=== PATIENT | male | born 1960 ===

== ENCOUNTER → 2020-04-17 09:02 | Outpatient (CLI) | payer OTHER, MEDICAID, SELFPAY ==
[2020-04-18 18:29] LABS: COVID19 Sendout Not Detected (Not Detect)
== END ==
PROVIDERS: PCP Family Medicine; Visit Provider Physician Assistant
DX: Z11.59 Encounter for screening for other viral diseases (principal)
CPT/HCPCS: 87635

== ENCOUNTER → 2020-07-04 13:06 | Outpatient (CLI) | payer OTHER, MEDICAID, SELFPAY ==
[2020-07-06 02:06] LABS: COVID19 Sendout Not Detected (Not Detect)
== END ==
PROVIDERS: PCP Family Medicine; Visit Provider Student in an Organized Health Care Education/Training Program
DX: Z11.59 Encounter for screening for other viral diseases (principal)
CPT/HCPCS: 87635

== ENCOUNTER → 2021-01-28 11:00 | Outpatient (CLI) | payer OTHER, MEDICAID, SELFPAY ==
--- NOTE | 2021-01-28 11:01 | DI.US.S_ITS ---
PROCEDURE: US ABDOMEN LIMITED INDICATIONS: Umbilical hernia without obstruction or gangrene TECHNIQUE: Real-time focused scanning was performed of the abdomen, with image documentation. COMPARISON: None. FINDINGS: There is an umbilical hernia seen, which appears to contain fat. The hernia defect measures approximately 2.5 cm. IMPRESSION: Umbilical hernia seen by ultrasound, which appears to contain omental fat. Dictated by: Hayden Cat M.D. on 01/28/2021 at 13:56 Approved by: Hayden Cat M.D. on 01/28/2021 at 13:57
== END ==
PROVIDERS: PCP Family Medicine; Referring Provider Family Medicine; Visit Provider Family Medicine
DX: K42.9 Umbilical hernia without obstruction or gangrene (principal)
CPT/HCPCS: 76705

== ENCOUNTER 2021-12-27 20:56 | Emergency (ER) | payer OTHER, MEDICAID, SELFPAY ==
[2021-12-27 21:02] VITALS: TEMP 36.9
== END 2021-12-27 22:13 | disposition left against medical advice (07) ==
PROVIDERS: Emergency Provider Emergency Medicine; PCP Family Medicine
DX: K08.89 Other specified disorders of teeth and supporting structures (principal)
CPT/HCPCS: 99281

== ENCOUNTER 2022-01-11 12:51 | Emergency (ER) | payer OTHER, MEDICAID, SELFPAY ==
[2022-01-11 13:23] VITALS: BP 149/92; PULSE 95; RESP 18; TEMP 36.7; O2SAT 99; BMI 25.0
--- NOTE | 2022-01-11 13:39 | DI.CT.S_ITS ---
PROCEDURE: CT HEAD/BRAIN W CON INDICATIONS: Headache/vision change TECHNIQUE: 4.5 mm thick angled axial sections acquired from the foramen magnum to the vertex after the administration of intravenous contrast, with coronal and sagittal reformats. For radiation dose reduction, the following was used: automated exposure control, adjustment of mA and/or kV according to patient size. COMPARISON: None. FINDINGS: Image quality: Excellent. CSF Spaces: Basal cisterns are patent. No extra-axial fluid collections. Ventricles are normal in size and shape. Brain: No midline shift. No intracranial bleeds or masses. No abnormal intracranial enhancement. Mayo-white interface appears normal. Skull and face: Calvarium and visualized facial bones appear intact, without suspicious lesions. Sinuses: Visualized sinuses and mastoids are clear. IMPRESSION: No acute intracranial abnormality or abnormal intracranial enhancement. Dictated by: Lito Ardon M.D. on 01/11/2022 at 14:52 Approved by: Lito Ardon M.D. on 01/11/2022 at 14:54
[2022-01-11] MEDS: KETOROLAC 30 MG/ML VIAL 15 MG IV (13:46)
--- NOTE | 2022-01-11 13:46 | ED.GENADULT ---
HPI - General Adult General Chief complaint: Dental/Oral Stated complaint: Jaw infection spreading- vision issues Time Seen by Provider: 01/11/22 13:25 Source: patient Mode of arrival: Ambulatory History of Present Illness HPI narrative: Patient here for multiple complaints. Patient states 2 weeks ago started with left lower jaw pain and swelling that has resolved. He did see his family doctor and was given amoxicillin twice a day for 10 days for infection to the left jaw. He denies any abscess at that time. Again, symptoms have resolved. Since then patient has had additional complaints. This past Monday had less than 1 minute episode of blurry vision in both eyes. He states he was done under any stress at the time. No headache associated with this. Denies any chest pain or palpitations. This morning he has mid inferior occipital scalp pain and tenderness to this area and upper neck. Increase pain with palpation and slight pain with range of motion of the neck. Patient states he has been under tremendous amount of stress. Undergoing a divorce, since May last year. He has 6 children. He states this stress is 5 times more than he would ever imagine having before. Related Data Home Medications Medication Instructions Recorded Confirmed cholesterol medication PO 02/19/21 omega-3 fatty acids 1,000 mg 1,000 mg PO DAILY 02/19/21 02/19/21 capsule (Fish Oil Concentrate) oxymetazoline 0.05 % nasal spray 1 spray intranasal ONCE 02/19/21 02/19/21 (12 Hour Nasal Relief [place]) Allergies Allergy/AdvReac Type Severity Reaction Status Date / Time Iqbshtl-XGH-AkL Reductase Allergy Intermediate Verified 01/11/22 13:46 Inhibitor [[id number] REDUCTASE INHIBITOR] Review of Systems Review of Systems Narrative: GENERAL: Denies chills, fatigue, malaise, fever, sweats. HEENT: Denies sinus pain, ear pain, sore throat RESPIRATORY: Denies dyspnea, cough CARDIOVASCULAR: Denies chest pain, palpitations GASTROINTESTINAL: Denies nausea, vomiting, abdominal pain : Denies dysuria, frequency, hematuria MUSCULOSKELETAL: Positive for muscle or bony pain, positive for neck pain SKIN: Denies rash, skin lesions NEUROLOGIC: Denies weakness, numbness, positive for blurry vision ROS Unobtainable: All systems reviewed & are unremarkable except as noted in HPI and below Patient History Social History Smoking Status: Never smoker Smoking Status: Never smoker alcohol intake frequency: other Substance Use Type: does not use Exam Narrative Exam Narrative: GENERAL: in no distress, not toxic not dyspneic HEAD: Normocephalic. EYES: Pupils equal round No scleral icterus. ENT: Mucous membranes moist. No gum erythema edema or or abscess in the left lower jaw. No dental abscess seen on inspection, no edema of the external mandible on the left or the right. No submandibular tenderness NECK: Trachea midline. Reproducible mid upper posterior cervical spine tenderness but no step-off. Has full range of motion at the neck but does have discomfort at this site. No meningeal signs. CARDIOVASCULAR: Regular rate and rhythm without murmurs RESPIRATORY: Clear to auscultation. Breath sounds equal bilaterally. No wheezes, rales, or rhonchi. GASTROINTESTINAL: Abdomen soft, non-tender EXTREMITIES: No gross deformities. BACK: No flank tenderness. NEURO: AOx4. SKIN: Warm and dry PSYCH: Not anxious, is cooperative Initial Vital Signs Initial Vital Signs: Vital Signs Temperature 98.1 F 01/11/22 13:23 Pulse Rate 95 H 01/11/22 13:23 Respiratory Rate 18 01/11/22 13:23 Blood Pressure 149/92 H 01/11/22 13:23 Pulse Oximetry 99 01/11/22 13:23 Oxygen Delivery Method 01/11/22 13:23 Course Course Course Narrative: No new issues during course of stay Orders Ordered: Discontinued Medications Sodium Chloride (Normal Saline 0.9%) 500 mls @ 1,000 mls/hr IV BOLUS ONE Stop: 01/11/22 14:03 Last Infusion: 01/11/22 14:37 Dose: 0 mls/hr Documented By: Admin: 01/11/22 13:47 Dose: 1,000 mls/hr Documented By: GINA Ketorolac Tromethamine (Ketorolac 30 Mg/Ml Vial) 15 mg IV NOW ONE Stop: 01/11/22 13:35 Last Admin: 01/11/22 13:46 Dose: 15 mg Documented By: GINA Reevaluation(s) Reevaluation #1: Patient neck is pain-free after Toradol. Feeling much better. Reviewed results with patient. They are reassuring blood work and imaging. Symptoms he has been describing likely tension headache/ocular migraine. He has been under a lot of stress. The posterior upper neck pain likely tension headache. This was relieved with Toradol. He may be developing ocular migraine with the symptoms he had from Monday with double vision. Return precautions reviewed with him. He does have a family doctor to follow up with. Patient states he sees eye doctor and office across from the hospital here. He states he will contact their office in the morning. Spoke with him that many stroke/stroke was considered however, given his intense amount of stress in his life recently, likely not stroke Vital Signs Vital signs: Vital Signs - 8 hr 01/11/22 13:23 01/11/22 15:39 Temperature 98.1 F Pulse Rate 95 H Respiratory Rate 18 89 H Blood Pressure 149/92 H 139/91 H Pulse Oximetry 99 98 Medical Decision Making Differential Diagnosis Differential Diagnosis: Tension headache/ocular migraine/facial abscess/brain abscess/TIA/stroke Lab Data Result diagrams: 01/11/22 13:50 01/11/22 13:50 Labs: Lab Results 01/11/22 01/11/22 Range/Units 13:50 13:50 WBC 8.2 (4.5-11.0) X10^3/uL RBC 4.61 (4.5-5.9) X10^6/uL Hgb 14.5 (13.5-17.5) g/dL Hct 41.2 (41-53) % MCV 89.4 (80-100) fL MCH 31.4 (26-34) PG MCHC 35.1 (30-36) % RDW 12.7 (11.6-14.8) % Plt Count 319 (150-400) X10^3/uL Neut % (Auto) 67.3 (50-75) % Lymph % (Auto) 20.1 L (25-40) % [place] % (Auto) 7.8 (3-14) % Eos % (Auto) 4.1 H (2-4) % Baso % (Auto) 0.7 (0-2) % Neut # (Auto) 5500 (9066-2856) /uL Lymph # (Auto) 1700 (8846-3260) /uL [place] # (Auto) 600 (0-900) /uL Eos # (Auto) 300 (0-450) /uL Baso # (Auto) 100 (0-100) /uL Sodium 140 (137-145) mmol/L Potassium 3.8 (3.4-5.1) mmol/L Chloride 103 (98-107) mmol/L Carbon Dioxide 29 (22-32) mmol/L BUN 14 (9-20) mg/dL Creatinine 0.80 (0.66-1.25) mg/dL Estimated GFR > 60 (>60) mL/min BUN/Creatinine Ratio 17.5 (6-22) Glucose 96 (80-110) mg/dL Calcium 9.1 (8.4-10.2) mg/dL Total Bilirubin 0.6 (0.2-1.3) mg/dL AST 31 (17-59) IU/L ALT 27 (<50) IU/L Alkaline Phosphatase 63 (38-126) U/L Total Protein 8.0 (6.3-8.2) g/dL Albumin 4.4 (3.5-5.0) g/dL Globulin 3.6 (1.7-4.1) g/dL Albumin/Globulin Ratio 1.2 (1.0-2.8) Imaging Data CT scan - head: Radiologist's Impression: [address] [address] [address] Scan Report Signed Patient: Rizwan Navarro MR#: [id number] : 1960 Acct:[id number] Age/Sex: 61 / M Date of Service: 01/11/22 Loc: ED Accession Number: [id number] ?? Procedure: CT head/brain w con Ordering Provider: Cristian Gamble MD PROCEDURE:? CT HEAD/BRAIN W CON ? INDICATIONS:? Headache/vision change ? TECHNIQUE:? 4.5 mm thick angled axial sections acquired from the foramen magnum to the vertex after the administration of intravenous contrast, with coronal and sagittal reformats.? For radiation dose reduction, the following was used:? automated exposure control, adjustment of mA and/or kV according to patient size.? ? COMPARISON:? None. ? FINDINGS:? Image quality:? Excellent.? ? CSF Spaces:? Basal cisterns are patent.? No extra-axial fluid collections.? Ventricles are normal in size and shape. ? Brain:? No midline shift.? No intracranial bleeds or masses.? No abnormal intracranial enhancement.? Mayo-white interface appears normal.? ? Skull and face:? Calvarium and visualized facial bones appear intact, without suspicious lesions.? ? Sinuses:? Visualized sinuses and mastoids are clear.? ? IMPRESSION:? No acute intracranial abnormality or abnormal intracranial enhancement. ? ? Dictated by: Lito Ardon M.D. on 01/11/2022 at 14:52 ? ? Approved by: Lito Ardon M.D. on 01/11/2022 at 14:54 ? CT face with IV contrast: Radiologist's Impression: [address] [address] [address] Scan Report Signed Patient: Rizwan Navarro MR#: [id number] : 1960 Acct:[id number] Age/Sex: 61 / M Date of Service: 01/11/22 Loc: ED Accession Number: [id number] ?? Procedure: CT facial bones w con Ordering Provider: Cristian Gamble MD PROCEDURE:? CT FACIAL BONES W CON ? INDICATIONS:? Headache/vision change ? TECHNIQUE:? After the administration of intravenous contrast, 2.5 mm axial sections acquired from the mid-neck to the frontal sinuses, with coronal and sagittal reformats.? For radiation dose reduction, the following was used:? automated exposure control, adjustment of mA and/or kV according to patient size.? ? COMPARISON:? None. ? FINDINGS:? ? There are a diffuse paranasal sinus osseous changes reflective of likely chronic or recurrent sinusitis, namely thickening and sclerosis of the paranasal sinus reid.? There is circumferential mucosal thickening in the maxillary sinuses measuring up to 1 cm.? The mucosal thickening moderately narrows the maxillary sinus outflow tracts bilaterally.? There is mucosal thickening in the sphenoid sinuses with obstruction of the bilateral sphenoid ethmoid recesses as well.? Mucosal thickening in the anterior and posterior ethmoid air cells with obstruction of the left frontoethmoid recess.? Small volume of aerated secretions in the left frontal sinus noted. ? Moderate S shaped nasal septal deviation with spurring creating a mucosal contact point with the left inferior nasal turbinate. ? No obvious carious lesion or periapical lucency.? No suspicious lytic or blastic osseous lesion.? No fluid collection or acute inflammatory changes in the regional soft tissues.? Orbital structures are normal. ? IMPRESSION: ? Diffuse paranasal sinus inflammatory changes indicative of probable chronic or recurrent sinusitis with possible acute superimpose sinusitis. ? Moderate S shaped nasal septal deviation with spurring creating a mucosal contact point. ? ? Dictated by: Lito Ardon M.D. on 01/11/2022 at 14:54 ? ? Approved by: Lito Ardon M.D. on 01/11/2022 at 14:58 ? MDM Narrative Medical decision making narrative: Appropriate for discharge home. Exam laboratory studies are reassuring. Differential diagnosis for patient's complaints today include but not limited to ocular migraine/tension headache. Facial abscess/cranial abscess. Pain was relieved with Toradol for the upper neck pain. Patient has a tremendous amount of stress he states, 5 times more than usual for his ongoing divorce since May. He has 6 children. At this time patient in no distress. Not toxic. Return precautions reviewed with him. TIA/stroke considered however exam is reassuring and imaging are reassuring as well. Discharge Plan Departure Patient Disposition: Home Clinical Impression: Acute tension headache Instructions: Tips for Reducing Stress in Your Life Activity Restrictions/Additional Instructions: See family doctor this week for recheck. May need referral to counseling to help for the stresses in your life. Return if worsening questions or concerns. Today's laboratory studies and imaging are reassuring. Ocular migraines can cause visual disturbances, given the stress you have been under, likely tension headache causing discomfort in the back of your head/neck. May continue ibuprofen for pain. Prescriptions: No Action oxymetazoline [12 Hour Nasal Relief [place]] 0.05 % spray,non-aerosol 1 spray intranasal ONCE omega-3 fatty acids [Fish Oil Concentrate] 1,000 mg capsule 1,000 mg PO DAILY cholesterol medication PO Referrals: Garrison Verma MD [Primary Care Provider] -
[2022-01-11] MEDS: SODIUM CHLORIDE 0.9% 500 ML 1000 ML IV (13:47)
[2022-01-11 14:02] LABS: Add Manual Diff / Slide Review NO; Basophils Absolute Auto 100 /uL (0-100); Basophils Percent Auto 0.7 % (0-2); Eosinophils Absolute Auto 300 /uL (0-450); Eosinophils Percent Auto 4.1 % (2-4); Hematocrit 41.2 % (41-53); Hemoglobin 14.5 g/dL (13.5-17.5); Lymphocytes Absolute Auto 1700 /uL (1100-4500); Lymphocytes Percent Auto 20.1 % (25-40); Mean Corpuscular HGB Conc 35.1 % (30-36); Mean Corpuscular Hemoglobin 31.4 PG (26-34); Mean Corpuscular Volume 89.4 fL (80-100); Monocytes Absolute Auto 600 /uL (0-900); Monocytes Percent Auto 7.8 % (3-14); Neutrophils Absolute Auto 5500 /uL (1500-7000); Neutrophils Percent Auto 67.3 % (50-75); Platelet Count 319 X10^3/uL (150-400); Red Blood Cell Count 4.61 X10^6/uL (4.5-5.9); Red Cell Distribution Width 12.7 % (11.6-14.8); White Blood Cell Count 8.2 X10^3/uL (4.5-11.0)
[2022-01-11 14:16] LABS: Alanine Aminotransferase 27 IU/L (<50); Albumin 4.4 g/dL (3.5-5.0); Albumin Globulin Ratio 1.2 (1.0-2.8); Alkaline Phosphatase 63 U/L (38-126); Aspartate Aminotransferase 31 IU/L (17-59); BUN Creatinine Ratio 17.5 (6-22); Bilirubin Total 0.6 mg/dL (0.2-1.3); Blood Urea Nitrogen 14 mg/dL (9-20); Calcium 9.1 mg/dL (8.4-10.2); Carbon Dioxide 29 mmol/L (22-32); Chloride 103 mmol/L (98-107); Estimated Glomerular Filt Rate > 60 mL/min (>60); Globulin 3.6 g/dL (1.7-4.1); Glucose 96 mg/dL (80-110); HEMOLYSIS < 15 (0-50); Potassium 3.8 mmol/L (3.4-5.1); Sodium 140 mmol/L (137-145)
--- NOTE | 2022-01-11 14:20 | DI.CT.S_ITS ---
PROCEDURE: CT FACIAL BONES W CON INDICATIONS: Headache/vision change TECHNIQUE: After the administration of intravenous contrast, 2.5 mm axial sections acquired from the mid-neck to the frontal sinuses, with coronal and sagittal reformats. For radiation dose reduction, the following was used: automated exposure control, adjustment of mA and/or kV according to patient size. COMPARISON: None. FINDINGS: There are a diffuse paranasal sinus osseous changes reflective of likely chronic or recurrent sinusitis, namely thickening and sclerosis of the paranasal sinus reid. There is circumferential mucosal thickening in the maxillary sinuses measuring up to 1 cm. The mucosal thickening moderately narrows the maxillary sinus outflow tracts bilaterally. There is mucosal thickening in the sphenoid sinuses with obstruction of the bilateral sphenoid ethmoid recesses as well. Mucosal thickening in the anterior and posterior ethmoid air cells with obstruction of the left frontoethmoid recess. Small volume of aerated secretions in the left frontal sinus noted. Moderate S shaped nasal septal deviation with spurring creating a mucosal contact point with the left inferior nasal turbinate. No obvious carious lesion or periapical lucency. No suspicious lytic or blastic osseous lesion. No fluid collection or acute inflammatory changes in the regional soft tissues. Orbital structures are normal. IMPRESSION: Diffuse paranasal sinus inflammatory changes indicative of probable chronic or recurrent sinusitis with possible acute superimpose sinusitis. Moderate S shaped nasal septal deviation with spurring creating a mucosal contact point. Dictated by: Lito Ardon M.D. on 01/11/2022 at 14:54 Approved by: Lito Ardon M.D. on 01/11/2022 at 14:58
[2022-01-11 15:39] VITALS: BP 139/91; RESP 89; O2SAT 98
== END 2022-01-11 15:39 | disposition home or self-care (01) ==
PROVIDERS: Emergency Provider Emergency Medicine; PCP Family Medicine
DX: G44.209 Tension-type headache, unspecified, not intractable (principal); M54.2 Cervicalgia
CPT/HCPCS: 36415; 70460; 70487; 80053; 85025; 96374; 99284; J1885

== ENCOUNTER 2022-07-07 12:57 | Inpatient (IN) | payer OTHER, MEDICAID, SELFPAY ==
[2022-07-07] VITALS (43 sets, daily range): BP systolic 108–158; BP diastolic 64–96; PULSE 71–88; RESP 12–30; TEMP 36.5–36.6; O2SAT 93–100; BMI 26.6; BMI 25.0
--- NOTE | 2022-07-07 | DI.CT.S_ITS ---
PROCEDURE: CT HEAD/BRAIN WO CON INDICATIONS: trauma TECHNIQUE: Noncontrast 4.5 mm thick angled axial sections acquired from the foramen magnum to the vertex, with coronal and sagittal reformats. For radiation dose reduction, the following was used: automated exposure control, adjustment of mA and/or kV according to patient size. COMPARISON: None. FINDINGS: Image quality: Excellent. CSF spaces: Basal cisterns are patent. No extra-axial fluid collections. Ventricles are normal in size and shape. Brain: No midline shift. No intracranial masses or hemorrhage. Mayo-white matter interface is normal. Skull and face: Calvarium and visualized facial bones are intact, without suspicious lesions. Sinuses: Visualized sinuses and mastoids are clear. IMPRESSION: No acute finding. Dictated by: Lito Ardon M.D. on 07/07/2022 at 13:32 Approved by: Lito Ardon M.D. on 07/07/2022 at 13:32
--- NOTE | 2022-07-07 | DI.CT.S_ITS ---
PROCEDURE: CT CHEST ABD PEL W CON INDICATIONS: trauma TECHNIQUE: After the administration of intravenous contrast, 5 mm thick sections acquired from the lung apices to the symphysis. 2.5 mm thick coronal and sagittal reformats were acquired. Additional 7 mm thick coronal maximum intensity projection (MIP) reformats acquired through the lungs. Optional 10-minute delayed imaging may be performed from the kidneys to the bladder. For radiation dose reduction, the following was used: automated exposure control, adjustment of mA and/or kV according to patient size. COMPARISON: None. FINDINGS: Image quality: Excellent. CHEST: Lungs: There is a small to moderate size pneumothorax along anterior aspect of right lung. Hazy opacities are noted along posterior and lateral aspect of right lung consistent with pulmonary contusion. Scattered atelectasis in posterior and lateral periphery of left lung is seen. No pleural effusion. No left-sided pneumothorax. Central and peripheral airways appear patent and normal in caliber. Mediastinum: No mediastinal hematomas. Heart size is normal. No pericardial effusion. Thoracic aorta and pulmonary arteries demonstrate normal size and enhancement. No mediastinal or hilar adenopathy. Esophagus is normal in caliber. No hiatal hernia. Chest wall: Minimally displaced fractures involving right posterior lateral 3rd through 8th ribs are seen. Adjacent subcutaneous emphysema along posterior lateral right chest wall is seen. No axillary or supraclavicular adenopathy. Thyroid gland is within normal limits.. ABDOMEN: Solid organs: Liver is normal in size and enhancement, without lacerations. Gallbladder is within normal limits. Biliary system is non-dilated. Pancreas enhances normally, without transection. Spleen is normal in size and enhancement, without lacerations. No adrenal hematomas. Both kidneys enhance normally, without hydronephrosis or lacerations. Peritoneum and bowel: No free fluid or air. Unenhanced bowel loops demonstrate normal wall thickness and caliber. Nodes and vessels: No retroperitoneal or mesenteric adenopathy. Aorta and inferior vena cava are normal in size and enhancement. Miscellaneous: Small umbilical hernia is seen containing fat only. PELVIS: Genitourinary: Bladder wall thickness is normal. Miscellaneous: No inguinal hernias or adenopathy. Bones: Pelvic ring and hip joints appear intact. No vertebral compression fractures. Degenerative disc disease throughout lower lumbar spine is seen. IMPRESSION: 1. Acute slightly displaced fractures involving right posterior lateral 3rd through 8th ribs with adjacent right posterior lateral chest wall subcutaneous emphysema. 2. Contusion involving posterior and lateral aspect of right lung with small to moderate size pneumothorax along anterior aspect of right hemithorax. No left-sided pleural effusion or pneumothorax. 3. No acute solid organ injury is seen in abdomen or pelvis. No mediastinal hematoma. No free fluid or free air. 4. No other fracture or dislocation is seen. Degenerative disc disease in lower lumbar spine. Dictated by: Angel Robles M.D. on 07/07/2022 at 13:49 Approved by: Angel Robles M.D. on 07/07/2022 at 14:03
--- NOTE | 2022-07-07 | DI.CT.S_ITS ---
PROCEDURE: CT CERVICAL SPINE WO CON INDICATIONS: trauma TECHNIQUE: Noncontrast 3 mm thick sections acquired from the skull base to the T4 level. Sagittal and coronal reformats were then constructed. For radiation dose reduction, the following was used: automated exposure control, adjustment of mA and/or kV according to patient size. COMPARISON: None. FINDINGS: Image quality: Excellent. Bones: No fractures or dislocations. Visualized superior ribs are intact. Soft tissues: Prevertebral soft tissues are normal in thickness. No paravertebral hematomas. No apical pneumothoraces. IMPRESSION: No CT evidence of acute tramautic injury. Dictated by: Lito Ardon M.D. on 07/07/2022 at 13:34 Approved by: Lito Ardon M.D. on 07/07/2022 at 13:35
--- NOTE | 2022-07-07 | DI.RAD.S_ITS ---
PROCEDURE: XR CHEST 1V INDICATIONS: tube placement TECHNIQUE: One view of the chest was acquired. COMPARISON: [facility], , XR CHEST 1V, 07/07/2022, 12:53. FINDINGS: Surgical changes and devices: A right-sided chest tube is placed in right hemithorax with site poor appears to be external to right hemithorax. Lungs and pleura: Radiolucency is noted along medial aspect of right hemithorax consistent with CT finding of small to moderate size anterior pneumothorax in this area. Left lung is clear. Mediastinum: Mediastinal contours appear normal. Heart size is enlarged. Bones and chest wall: Patient's known slightly displaced right posterior lateral 3rd through 8th rib fractures are again seen. No suspicious bony lesions. Subcutaneous emphysema along right lateral chest wall is seen likely related to chest tube placement. IMPRESSION: 1. Right-sided chest tube is seen with side port appears to be external to right hemithorax and within right chest wall soft tissue, suggest clinical correlation and repositioning. 2. Radiolucency along medial portion of right hemithorax consistent with CT finding of small pneumothorax in this area. No left-sided pneumothorax. 3. Slightly displaced right posterior lateral right rib fractures. Dictated by: Angel Robles M.D. on 07/07/2022 at 15:12 Approved by: Angel Robles M.D. on 07/07/2022 at 15:15
--- NOTE | 2022-07-07 13:05 | DI.RAD.S_ITS ---
PROCEDURE: XR CHEST 1V INDICATIONS: trauma TECHNIQUE: One view of the chest was acquired. COMPARISON: None. FINDINGS: Surgical changes and devices: None. Lungs and pleura: Lungs are clear. No pleural effusions or pneumothorax. Mediastinum: Mediastinal contours appear normal. Heart size is enlarged. Bones and chest wall: No suspicious bony lesions. Overlying soft tissues appear unremarkable. IMPRESSION: Cardiomegaly. No acute cardiopulmonary pathology. Dictated by: Angel Robles M.D. on 07/07/2022 at 13:17 Approved by: nAgel Robles M.D. on 07/07/2022 at 13:20
[2022-07-07] MEDS: HYDROMORPHONE 0.5 MG INJ (13:06)
--- NOTE | 2022-07-07 13:27 | PC.NURSE ---
pt removed from vaccum spine board in [place] at 9045
[2022-07-07 13:30] LABS: Add Manual Diff / Slide Review NO; Basophils Absolute Auto 100 /uL (0-100); Basophils Percent Auto 0.6 % (0-2); Eosinophils Absolute Auto 400 /uL (0-450); Hematocrit 40.6 % (41-53); Hemoglobin 13.8 g/dL (13.5-17.5); Lymphocytes Absolute Auto 1500 /uL (1100-4500); Lymphocytes Percent Auto 17.9 % (25-40); Mean Corpuscular Hemoglobin 30.7 PG (26-34); Mean Corpuscular Volume 90.3 fL (80-100); Monocytes Absolute Auto 800 /uL (0-900); Monocytes Percent Auto 8.8 % (3-14); Neutrophils Absolute Auto 5800 /uL (1500-7000); Neutrophils Percent Auto 67.7 % (50-75); Platelet Count 308 X10^3/uL (150-400); Red Blood Cell Count 4.49 X10^6/uL (4.5-5.9); Red Cell Distribution Width 13.6 % (11.6-14.8); White Blood Cell Count 8.6 X10^3/uL (4.5-11.0)
[2022-07-07 13:34] LABS: Prothrombin Time 11.6 SECONDS (10.1-12.7)
[2022-07-07 13:36] LABS: PTT Partial Thromboplastin Tim 31 SECONDS (26-36)
[2022-07-07 13:42] LABS: Alanine Aminotransferase 46 IU/L (<50); Albumin 4.2 g/dL (3.5-5.0); Albumin Globulin Ratio 1.1 (1.0-2.8); Alkaline Phosphatase 69 U/L (38-126); Aspartate Aminotransferase 58 IU/L (17-59); BUN Creatinine Ratio 19.3 (6-22); Bilirubin Total 0.7 mg/dL (0.2-1.3); Blood Urea Nitrogen 16 mg/dL (9-20); Carbon Dioxide 29 mmol/L (22-32); Chloride 100 mmol/L (98-107); Creatine Kinase 213 U/L (55-170); Estimated Glomerular Filt Rate > 60 mL/min (>60); Ethanol (ETOH) < 10 mg/dL; Globulin 3.7 g/dL (1.7-4.1); Glucose 132 mg/dL (80-110); HEMOLYSIS < 15 (0-50); Lactate (Lactic Acid) 1.3 mmol/L (0.7-2.1); Lipase 156 U/L (23-300); Potassium 4.2 mmol/L (3.4-5.1); Sodium 138 mmol/L (137-145); Total Protein 7.9 g/dL (6.3-8.2)
[2022-07-07 13:53] LABS: Troponin I < 0.012 ng/mL (0.01-0.034)
[2022-07-07 13:57] LABS: CKMB % Relative Index 1.1 % (1.5-5.0); Creatine Kinase MB 2.42 ng/mL (<2.37)
--- NOTE | 2022-07-07 14:22 | ED_ITS ---
HPI - Trauma General Chief Complaint: Trauma Stated Complaint: fell off roof Time Seen by Provider: 07/07/22 13:05 Source: patient Mode of arrival: EMS History of Present Illness HPI narrative: Patient is a 61-year-old male who presents as a trauma fall off roof. He states his is sun roof was or leaking he had some tarp she went up there to rearrange that tarp he went to throw a ladder when he slipped and fell on the roof landing on his right side. He did not hit his head or lose consciousness. He is not on any anti-platelet or anticoagulation medications. Complaining of severe pain and right side the pain. Also having some back pain as well Related Data Home Medications Medication Instructions Recorded Confirmed omega-3 fatty acids 1,000 mg 1,000 mg PO DAILY 02/19/21 07/07/22 capsule (Fish Oil Concentrate) oxymetazoline 0.05 % nasal spray 1 spray intranasal ONCE 02/19/21 07/07/22 (12 Hour Nasal Relief [place]) acyclovir 400 mg tablet 400 mg PO DAILY 07/07/22 07/07/22 dextroamphetamine-amphetamine 5 mg 5 mg PO DAILY 07/07/22 07/07/22 tablet dextroamphetamine-amphetamine ER 20 mg PO DAILY 07/07/22 07/07/22 20 mg 24hr capsule,extend release Allergies Allergy/AdvReac Type Severity Reaction Status Date / Time Focloyw-QNS-ZiB Reductase Allergy Intermediate Verified 01/11/22 13:46 Inhibitor [[id number] REDUCTASE INHIBITOR] Review of Systems Review of Systems Narrative: GENERAL: Denies chills, fatigue, malaise, fever, sweats, travel HEENT: Denies sinus pain, ear pain, sore throat, difficulty swallowing, neck pain RESPIRATORY: Denies dyspnea, cough, wheezing, hemoptysis, sputum. CARDIOVASCULAR: Denies chest pain, palpitations, orthopnea, edema GASTROINTESTINAL: Denies nausea, vomiting, abdominal pain, diarrhea, constipation, melena. : Denies dysuria, frequency, incontinence, hematuria, urinary retention, flank pain. MUSCULOSKELETAL: See HPI SKIN: No rash, no erythema, no pruritus NEUROLOGIC: Denies weakness, dizziness, headache, numbness, change in speech, confusion PSYCHIATRIC: No concerning psychosocial issues. 12 point review of systems is negative except for those stated above and HPI Patient History Social History household members: none Smoking Status: Never smoker alcohol intake: current Smoking Status: Never smoker alcohol intake frequency: other Substance Use Type: does not use Exam Initial Vital Signs Initial Vital Signs: Vital Signs Pulse Rate 75 07/07/22 12:50 Respiratory Rate 20 07/07/22 12:50 Blood Pressure 150/96 H 07/07/22 12:50 Pulse Oximetry 96 07/07/22 12:50 Oxygen Delivery Method 07/07/22 12:50 GENERAL: Alert 61-year-old male appears uncomfortable and in pain HEENT: Head normocephalic,, EOMI, pupils reactive, face symmetric, moist mucous membranes, no hemotympanum, no septal hematoma NECK: Supple, full range of motion, no step-offs, nontender on vertebrae CARDIOVASCULAR: Regular rate and rhythm without murmurs, rubs or gallops. RESPIRATORY: Decreased sounds bilaterally no respiratory distress no flail chest or rib contusion ABDOMEN: Soft, nontender. Normoactive bowel sounds all 4 quadrants. No guarding or rebound. BACK: Nontender vertebrae, no step-offs, no contusions PELVIS: stable. EXTREMITIES: Normal range of motion, no clubbing or edema. Right upper extremity: Within normal limits Left upper extremity: Within normal limits Right lower extremity: Within normal limits Left lower extremity:Within normal limits NEUROLOGICAL: Cranial nerves II through XII grossly intact. Normal gait and speech. SKIN: Warm, dry, no petechiae, no rashes or lesions, no contusions or ecchymosis Procedures Chest Tube Chest Tube 1: Chest Tube Location: right and mid axillary line Size of Tube (cm): 20 Chest Tube Prep: Yes betadine prep and sterile drapes applied Local Anesthetic: lidocaine 1% and with epi Amount of anesthesia used (mL): 5 Incision Made With: #11 blade Post Procedure: sutured to skin and sterile dressing applied Tube Drainage: none Post Procedure CXR?: Yes Patient Tolerated Procedure: Yes Complications: placement outside of thoracic cavity and tube needs to be repositioned Progress: Initially condensation was in tube initial booth of air Chest Tube 2: Chest Tube Location: right and mid axillary line Size of Tube (cm): 20 Chest Tube Prep: Yes betadine prep and sterile drapes applied Local Anesthetic: lidocaine 1% and with epi Amount of anesthesia used (mL): 10 Post Procedure: sutured to skin and sterile dressing applied Tube Drainage: blood Amount of initial drainage (mL): 2 Post Procedure CXR?: Yes Patient Tolerated Procedure: Yes Progress: Chest tube required repositioning. New chest tube was placed through the same incision and same hold previously made. Condensation in 2 Procedural Sedation Consent signed: Yes Time out performed: Yes Indication: other (Chest tube) IV Propofol dose (mg): 80 Additional Comments: Procedure: Chest 2 Indication(s): chest tube Past History: Prior complication to general anesthesia: [] Prior complication to procedural sedation: [] Last food/drink ingestion: [] Allergies: [] ASA Classification: E E. Emergent conditions P1:Normal healthy patient P2: Mild systemic disease P3: Severe systemic disease P4: Severe systemic disease that is a constant threat to life P5: Moribund patient who is not expected to survive w/o operation Physical Exam: Airway: [] Mallampati Classification: 1 1. Soft Palate, anterior/posterior tonsillar pillars and uvula visible 2. Tonsillar pillars and uvula hidden by base of tongue 3. Only soft palate visible 4. Soft palate not visible Preparation: Plan was explained to the patient, including risks and benefits. Patient is competent to make decisions regarding this elective procedure. Consent signed. night monitor in place during procedure Oximetry in place during procedure. Capnometry in place during procedure. IV access present and patent. Suction available at bedside if needed. Sedation medication used: Propofol 50 mg Complications: None Reversal: None Course Orders Ordered: ED Orders 07/07/22 13:05 Chest [XR chest 1V] Stat 07/07/22 13:06 CBC Auto Diff [Complete Blood Count AUTO DIFF] Stat CMP [Comprehensive Metabolic Panel] Stat ETOH [Ethanol (ETOH)] Stat Lactate (Lactic Acid) Stat Lipase Stat PT [Prothrombin Time INR] Stat PTT [Partial Thromboplastin Time] Stat Troponin & CK Cardiac Panel Stat Urine Drug Screen, Rapid Stat 07/07/22 14:01 EKG-12 Lead Stat 07/07/22 15:20 XR chest 1V Stat 07/07/22 16:30 COVID19 -Nasal RAPID/Pre-Proc Stat Acetaminophen (Acetaminophen 325 Mg Tablet) 650 mg PO Q6H PRN PRN Reason: Fever/Mild Pain (1-3) Hydrocodone Bitart/Acetaminophen (Hydrocodone/Acet 5/325 Tablet) 1 tab PO Q4H PRN PRN Reason: Pain, Moderate (4-6) Hydromorphone HCl (Hydromorphone 0.5 Mg Inj) 0.5 mg IV Q4H PRN PRN Reason: Pain, Moderate (4-6) Ibuprofen (Ibuprofen 600 Mg Tablet) 600 mg PO Q6H PRN PRN Reason: Fever/Mild Pain (1-3) Naloxone HCl (Naloxone 0.4 Mg/Ml Vial) 0.2 mg IV Q2MIN PRN PRN Reason: Opiate Reversal Ondansetron HCl (Ondansetron 4 Mg/2 Ml Inj) 4 mg IV Q8HR PRN PRN Reason: Nausea And Vomiting Discontinued Medications Hydromorphone HCl (Hydromorphone 0.5 Mg Inj) 0.5 mg IV NOW ONE Stop: 07/07/22 14:23 Last Admin: 07/07/22 14:30 Dose: 0.5 mg Documented By: CTS Hydromorphone HCl (Hydromorphone 1 Mg Inj) 1 mg IV Q3H CRISTO Last Admin: 07/07/22 15:08 Dose: 1 mg Documented By: RB Hydromorphone HCl (Hydromorphone 1 Mg Inj) 1 mg IV NOW ONE Stop: 07/07/22 16:22 Last Admin: 07/07/22 16:25 Dose: 1 mg Documented By: CTS Sodium Chloride (Normal Saline 0.9%) 1,000 mls @ 1,000 mls/hr IV BOLUS ONE Stop: 07/07/22 15:21 Last Infusion: 07/07/22 16:03 Dose: 0 mls/hr Documented By: Admin: 07/07/22 14:41 Dose: 1,000 mls/hr Documented By: CTS Propofol (Propofol 200 Mg/20 Ml Vial) 80 mg 1 mg/kg (80 mg) IV NOW ONE Stop: 07/07/22 14:23 Last Admin: 07/07/22 14:45 Dose: 80 mg Documented By: CTS Propofol (Propofol 200 Mg/20 Ml Vial) 50 mg IV NOW ONE Stop: 07/07/22 16:02 Last Admin: 07/07/22 15:40 Dose: 50 mg Documented By: CTS Vital Signs Vital signs: Vital Signs - 8 hr 07/07/22 13:22 07/07/22 12:50 07/07/22 13:08 Temperature 97.8 F Pulse Rate 76 75 76 Respiratory Rate 16 20 21 Blood Pressure 155/90 H 150/96 H Pulse Oximetry 95 96 95 Oxygen Delivery Method Room Air Room Air Oxygen Flow Rate 07/07/22 13:21 07/07/22 13:21 07/07/22 13:25 Temperature Pulse Rate 79 79 Respiratory Rate 21 15 Blood Pressure 141/84 H Pulse Oximetry 97 95 Oxygen Delivery Method Oxygen Flow Rate 07/07/22 13:25 07/07/22 13:30 07/07/22 13:31 Temperature Pulse Rate 76 73 Respiratory Rate 22 23 Blood Pressure 144/88 H Pulse Oximetry 98 97 Oxygen Delivery Method Oxygen Flow Rate 07/07/22 13:31 07/07/22 13:35 07/07/22 13:35 Temperature Pulse Rate 72 Respiratory Rate 20 Blood Pressure 138/86 130/81 Pulse Oximetry 95 Oxygen Delivery Method Oxygen Flow Rate 07/07/22 13:45 07/07/22 13:45 07/07/22 14:00 Temperature Pulse Rate 73 Respiratory Rate 19 Blood Pressure 136/85 136/91 H Pulse Oximetry 97 Oxygen Delivery Method Oxygen Flow Rate 07/07/22 14:00 07/07/22 14:15 07/07/22 14:15 Temperature Pulse Rate 75 76 Respiratory Rate 18 17 Blood Pressure 132/82 Pulse Oximetry 98 95 Oxygen Delivery Method Oxygen Flow Rate 07/07/22 14:20 07/07/22 14:25 07/07/22 14:30 Temperature Pulse Rate 81 80 Respiratory Rate 22 19 Blood Pressure 127/81 Pulse Oximetry 97 98 Oxygen Delivery Method Oxygen Flow Rate 07/07/22 14:30 07/07/22 14:35 07/07/22 14:35 Temperature Pulse Rate 81 73 Respiratory Rate 25 H 16 Blood Pressure 120/74 Pulse Oximetry 98 97 Oxygen Delivery Method Oxygen Flow Rate 07/07/22 14:40 07/07/22 14:40 07/07/22 14:44 Temperature Pulse Rate 75 74 Respiratory Rate 24 18 Blood Pressure 130/82 Pulse Oximetry 100 100 Oxygen Delivery Method Oxygen Flow Rate 07/07/22 14:44 07/07/22 14:45 07/07/22 14:50 Temperature Pulse Rate 76 Respiratory Rate 20 Blood Pressure 131/82 136/70 141/72 H Pulse Oximetry 100 Oxygen Delivery Method Oxygen Flow Rate 07/07/22 14:50 07/07/22 14:55 07/07/22 14:55 Temperature Pulse Rate 79 78 Respiratory Rate 30 H 22 Blood Pressure 133/78 Pulse Oximetry 94 98 Oxygen Delivery Method Oxygen Flow Rate 07/07/22 14:59 07/07/22 15:00 07/07/22 15:00 Temperature Pulse Rate 74 Respiratory Rate 18 21 Blood Pressure 132/77 Pulse Oximetry 100 Oxygen Delivery Method Oxygen Flow Rate 07/07/22 15:05 07/07/22 15:05 07/07/22 15:10 Temperature Pulse Rate 74 Respiratory Rate 20 Blood Pressure 135/81 158/85 H Pulse Oximetry 100 Oxygen Delivery Method Oxygen Flow Rate 07/07/22 15:10 07/07/22 15:15 07/07/22 15:15 Temperature Pulse Rate 80 77 Respiratory Rate 23 12 Blood Pressure 121/73 Pulse Oximetry 100 98 Oxygen Delivery Method Oxygen Flow Rate 07/07/22 15:20 07/07/22 15:20 07/07/22 15:25 Temperature Pulse Rate 82 Respiratory Rate 20 Blood Pressure 124/78 114/77 Pulse Oximetry 99 Oxygen Delivery Method Oxygen Flow Rate 07/07/22 15:25 07/07/22 15:30 07/07/22 15:30 Temperature Pulse Rate 84 83 Respiratory Rate 13 18 Blood Pressure 124/80 Pulse Oximetry 98 97 Oxygen Delivery Method Oxygen Flow Rate 07/07/22 15:35 07/07/22 15:35 07/07/22 15:40 Temperature Pulse Rate 81 Respiratory Rate 18 Blood Pressure 124/84 122/77 Pulse Oximetry 97 Oxygen Delivery Method Oxygen Flow Rate 07/07/22 15:40 07/07/22 15:45 07/07/22 15:45 Temperature Pulse Rate 77 87 Respiratory Rate 12 15 Blood Pressure 119/79 Pulse Oximetry 99 97 Oxygen Delivery Method Nasal Cannula Oxygen Flow Rate 4 07/07/22 15:50 07/07/22 15:50 07/07/22 15:55 Temperature Pulse Rate 79 Respiratory Rate 15 Blood Pressure 126/66 123/74 Pulse Oximetry 93 Oxygen Delivery Method Nasal Cannula Oxygen Flow Rate 4 07/07/22 15:55 07/07/22 16:00 07/07/22 16:00 Temperature Pulse Rate 75 71 Respiratory Rate 14 15 Blood Pressure 122/77 Pulse Oximetry 100 100 Oxygen Delivery Method Nasal Cannula Nasal Cannula Oxygen Flow Rate 4 2 07/07/22 16:05 07/07/22 16:05 07/07/22 16:10 Temperature Pulse Rate 85 Respiratory Rate 21 Blood Pressure 128/82 126/75 Pulse Oximetry 99 Oxygen Delivery Method Nasal Cannula Oxygen Flow Rate 2 07/07/22 16:10 07/07/22 16:15 07/07/22 16:15 Temperature Pulse Rate 84 81 Respiratory Rate 20 19 Blood Pressure 125/78 Pulse Oximetry 98 99 Oxygen Delivery Method Nasal Cannula Room Air Oxygen Flow Rate 2 07/07/22 16:20 07/07/22 16:20 07/07/22 12:55 Temperature Pulse Rate 74 76 Respiratory Rate 16 20 Blood Pressure 120/69 150/88 H Pulse Oximetry 98 96 Oxygen Delivery Method Oxygen Flow Rate 07/07/22 16:35 Temperature Pulse Rate 79 Respiratory Rate 12 Blood Pressure 108/64 Pulse Oximetry 96 Oxygen Delivery Method Room Air Oxygen Flow Rate MDM - Trauma Lab Data Result diagrams: 07/07/22 13:06 07/07/22 13:06 Labs: Lab Results 07/07/22 07/07/22 07/07/22 Range/Units 13:06 13:06 13:06 WBC 8.6 (4.5-11.0) X10^3/uL RBC 4.49 L (4.5-5.9) X10^6/uL Hgb 13.8 (13.5-17.5) g/dL Hct 40.6 L (41-53) % MCV 90.3 (80-100) fL MCH 30.7 (26-34) PG MCHC 34.0 (30-36) % RDW 13.6 (11.6-14.8) % Plt Count 308 (150-400) X10^3/uL Neut % (Auto) 67.7 (50-75) % Lymph % (Auto) 17.9 L (25-40) % Barton % (Auto) 8.8 (3-14) % Eos % (Auto) 5.0 H (2-4) % Baso % (Auto) 0.6 (0-2) % Neut # (Auto) 5800 (8019-0302) /uL Lymph # (Auto) 1500 (7817-1158) /uL Barton # (Auto) 800 (0-900) /uL Eos # (Auto) 400 (0-450) /uL Baso # (Auto) 100 (0-100) /uL PT 11.6 (10.1-12.7) SECONDS INR 1.0 (0.9-1.3) APTT 31 (26-36) SECONDS Sodium 138 (137-145) mmol/L Potassium 4.2 (3.4-5.1) mmol/L Chloride 100 (98-107) mmol/L Carbon Dioxide 29 (22-32) mmol/L BUN 16 (9-20) mg/dL Creatinine 0.83 (0.66-1.25) mg/dL Estimated GFR > 60 (>60) mL/min BUN/Creatinine Ratio 19.3 (6-22) Glucose 132 H (80-110) mg/dL Lactate (0.7-2.1) mmol/L Calcium 9.0 (8.4-10.2) mg/dL Total Bilirubin 0.7 (0.2-1.3) mg/dL AST 58 (17-59) IU/L ALT 46 (<50) IU/L Alkaline Phosphatase 69 (38-126) U/L Total Creatine Kinase 213 H (55-170) U/L CK-MB (CK-2) 2.42 H (<2.37) ng/mL CK-MB (CK-2) Rel Index 1.1 L (1.5-5.0) % Troponin I < 0.012 (0.01-0.034) ng/mL Total Protein 7.9 (6.3-8.2) g/dL Albumin 4.2 (3.5-5.0) g/dL Globulin 3.7 (1.7-4.1) g/dL Albumin/Globulin Ratio 1.1 (1.0-2.8) Lipase 156 (23-300) U/L Ethyl Alcohol < 10 ( - 10) mg/dL SARS-CoV-2 (PCR) (Negative) 07/07/22 07/07/22 Range/Units 13:06 16:30 WBC (4.5-11.0) X10^3/uL RBC (4.5-5.9) X10^6/uL Hgb (13.5-17.5) g/dL Hct (41-53) % MCV (80-100) fL MCH (26-34) PG MCHC (30-36) % RDW (11.6-14.8) % Plt Count (150-400) X10^3/uL Neut % (Auto) (50-75) % Lymph % (Auto) (25-40) % Barton % (Auto) (3-14) % Eos % (Auto) (2-4) % Baso % (Auto) (0-2) % Neut # (Auto) (1828-9059) /uL Lymph # (Auto) (9390-4010) /uL Barton # (Auto) (0-900) /uL Eos # (Auto) (0-450) /uL Baso # (Auto) (0-100) /uL PT (10.1-12.7) SECONDS INR (0.9-1.3) APTT (26-36) SECONDS Sodium (137-145) mmol/L Potassium (3.4-5.1) mmol/L Chloride (98-107) mmol/L Carbon Dioxide (22-32) mmol/L BUN (9-20) mg/dL Creatinine (0.66-1.25) mg/dL Estimated GFR (>60) mL/min BUN/Creatinine Ratio (6-22) Glucose (80-110) mg/dL Lactate 1.3 (0.7-2.1) mmol/L Calcium (8.4-10.2) mg/dL Total Bilirubin (0.2-1.3) mg/dL AST (17-59) IU/L ALT (<50) IU/L Alkaline Phosphatase (38-126) U/L Total Creatine Kinase (55-170) U/L CK-MB (CK-2) (<2.37) ng/mL CK-MB (CK-2) Rel Index (1.5-5.0) % Troponin I (0.01-0.034) ng/mL Total Protein (6.3-8.2) g/dL Albumin (3.5-5.0) g/dL Globulin (1.7-4.1) g/dL Albumin/Globulin Ratio (1.0-2.8) Lipase (23-300) U/L Ethyl Alcohol ( - 10) mg/dL SARS-CoV-2 (PCR) Negative (Negative) Imaging Data Chest x-ray: Radiologist's Impression: Rizwan dudley MR#: [id number] : 1960 Acct:[id number] Age/Sex: 61 / M Date of Service: 07/07/22 Loc: ED Accession Number: [id number] ?? Procedure: XR chest 1V Ordering Provider: Maricel Cedeño D.O. PROCEDURE:? XR CHEST 1V ? INDICATIONS:? tube placement ? TECHNIQUE:? One view of the chest was acquired.? ? COMPARISON:? [facility], , XR CHEST 1V, 07/07/2022, 12:53. ? FINDINGS:? ? Surgical changes and devices:? A right-sided chest tube is placed in right hemithorax with site poor appears to be external to right hemithorax. ? Lungs and pleura:? Radiolucency is noted along medial aspect of right hemithorax consistent with CT finding of small to moderate size anterior pneumothorax in this area.? Left lung is clear. ? Mediastinum:? Mediastinal contours appear normal.? Heart size is enlarged.? ? Bones and chest wall:? Patient's known slightly displaced right posterior lateral 3rd through 8th rib fractures are again seen.? No suspicious bony lesions.? Subcutaneous emphysema along right lateral chest wall is seen likely related to chest tube placement. ? IMPRESSION:? 1. Right-sided chest tube is seen with side port appears to be external to right hemithorax and within right chest wall soft tissue, suggest clinical correlation and repositioning. 2. Radiolucency along medial portion of right hemithorax consistent with CT finding of small pneumothorax in this area.? No left-sided pneumothorax. 3. Slightly displaced right posterior lateral right rib fractures. ? ? Dictated by: Angel Robles M.D. on 07/07/2022 at 15:12 ? ? Approved by: Angel Robles M.D. on 07/07/2022 at 15:15 ? CX 2: Radiologist's Impression: Addendum Patient: Rizwan Navarro MR#: [id number] : 1960 Acct:[id number] Age/Sex: 61 / M Date of Service: 07/07/22 Loc: ED Accession Number: [id number] ?? Procedure: XR chest 1V Ordering Provider: Maricel Cedeño D.O. ADDENDUMThis report includes an Addendum and supersedes previous reports for this exam. ? ? ? PROCEDURE:? XR CHEST 1V ? INDICATIONS:? trauma ? TECHNIQUE:? One view of the chest was acquired.? ? COMPARISON:? None. ? FINDINGS:? ? Surgical changes and devices:? None.? ? Lungs and pleura:? Lungs are clear.? No pleural effusions or pneumothorax.? ? Mediastinum:? Mediastinal contours appear normal.? Heart size is enlarged.? ? Bones and chest wall:? No suspicious bony lesions.? Overlying soft tissues appear unremarkable.? ? IMPRESSION:? Cardiomegaly.? No acute cardiopulmonary pathology. ? ? Dictated by: Angel Robles M.D. on 07/07/2022 at 13:17 ? ? Approved by: Angel Robles M.D. on 07/07/2022 at 13:20 ? ? ? ADDENDUM: ? There are suggestion of subtle slightly displaced fractures involving right posterior lateral 5th through 8th ribs.? Please correlate with CT of chest findings from the same day. ? Dictated by: Angel Robles M.D. on 07/07/2022 at 14:07 ? ? Approved by: Angel Robles M.D. on 07/07/2022 at 14:08 ? CX 3: Radiologist's Impression: XRay Report Signed Patient: Rizwan Navarro MR#: [id number] : 1960 Acct:[id number] Age/Sex: 61 / M Date of Service: 07/07/22 Loc: ED Accession Number: [id number] ?? Procedure: XR chest 1V Ordering Provider: Maricel Cedeño D.O. PROCEDURE:? XR CHEST 1V ? INDICATIONS:? chest tube ? TECHNIQUE:? One view of the chest was acquired.? ? COMPARISON:? [facility], , XR CHEST 1V, 07/07/2022, 14:54. ? FINDINGS:? ? Surgical changes and devices:? There is interval reposition of right-sided chest tube, the side port appears to be within right hemithorax. ? Lungs and pleura:? Subtle radiolucency along medial aspect of right upper thorax is seen likely represent patient's known anterior pneumothorax and appears smaller compared to earlier study.? No left-sided pneumothorax.? Patient's known right lower lung field pulmonary contusion is not well seen on the chest radiograph. ? Mediastinum:? Mediastinal contours appear normal.? Heart size is normal.? ? Bones and chest wall:? No suspicious bony lesions.? Subcutaneous emphysema is again seen along right lateral chest wall.? Patient's known right posterior rib fractures are unchanged. ? IMPRESSION:? Interval repositioning of right-sided chest tube with chest tube now appears in satisfactory position.? Suggestion of small residual right anterior pneumothorax.? No left-sided pneumothorax.? Right rib fractures are again seen unchanged. ? ? Dictated by: Angel Robles M.D. on 07/07/2022 at 16:02 ? ? Approved by: Angel Robles M.D. on 07/07/2022 at 16:05 ? CT scan - head: Radiologist's Impression: Patient: Rizwan Navarro MR#: [id number] : 1960 Acct:[id number] Age/Sex: 61 / M Date of Service: 07/07/22 Loc: ED Accession Number: [id number] ?? Procedure: CT head/brain wo con Ordering Provider: Maricel Cedeño D.O. PROCEDURE:? CT HEAD/BRAIN WO CON ? INDICATIONS:? trauma ? TECHNIQUE:? Noncontrast 4.5 mm thick angled axial sections acquired from the foramen magnum to the vertex, with coronal and sagittal reformats.? For radiation dose reduction, the following was used:? automated exposure control, adjustment of mA and/or kV according to patient size.? ? COMPARISON:? None. ? FINDINGS:? Image quality:? Excellent.? ? CSF spaces:? Basal cisterns are patent.? No extra-axial fluid collections.? Ventricles are normal in size and shape.? ? Brain:? No midline shift.? No intracranial masses or hemorrhage.? Mayo-white matter interface is normal.? ? Skull and face:? Calvarium and visualized facial bones are intact, without suspicious lesions.? ? Sinuses:? Visualized sinuses and mastoids are clear.? ? IMPRESSION:? No acute finding. ? ? Dictated by: Lito Ardno M.D. on 07/07/2022 at 13:32 ? ? CT - cervical spine: Radiologist's Impression: [address] [address] [address] Scan Report Signed Patient: Rizwan Navarro MR#: [id number] : 1960 Acct:[id number] Age/Sex: 61 / M Date of Service: 07/07/22 Loc: ED Accession Number: [id number] ?? Procedure: CT cervical spine wo con Ordering Provider: Maricel Cedeño D.O. PROCEDURE:? CT CERVICAL SPINE WO CON ? INDICATIONS:? trauma ? TECHNIQUE:? Noncontrast 3 mm thick sections acquired from the skull base to the T4 level.? Sagittal and coronal reformats were then constructed.? For radiation dose reduction, the following was used:? automated exposure control, adjustment of mA and/or kV according to patient size.? ? COMPARISON:? None. ? FINDINGS:? Image quality:? Excellent.? ? Bones:? No fractures or dislocations.? Visualized superior ribs are intact.? ? Soft tissues:? Prevertebral soft tissues are normal in thickness.? No p aravertebral hematomas.? No apical pneumothoraces.? ? ? IMPRESSION:? No CT evidence of acute tramautic injury. ? Dictated by: Lito Ardon M.D. on 07/07/2022 at 13:34 ? ? Approved by: Lito Ardon M.D. on 07/07/2022 at 13:35 ? CT scan - chest: Radiologist's Impression: ent: Rizwan Navarro MR#: [id number] : 1960 Acct:[id number] Age/Sex: 61 / M Date of Service: 07/07/22 Loc: ED Accession Number: [id number] ?? Procedure: CT chest abd pel w con Ordering Provider: Maricel Cedeño D.O. PROCEDURE:? CT CHEST ABD PEL W CON ? INDICATIONS:? trauma ? TECHNIQUE:? After the administration of intravenous contrast, 5 mm thick sections acquired from the lung apices to the symphysis.? 2.5 mm thick coronal and sagittal reformats were acquired. ?Additional 7 mm thick coronal maximum intensity projection (MIP) reformats acquired through the lungs.? Optional 10-minute delayed imaging may be performed from the kidneys to the bladder.? For radiation dose reduction, the following was used:? automated exposure control, adjustment of mA and/or kV according to patient size.? ? COMPARISON:? None. ? FINDINGS:? Image quality:? Excellent.? ? CHEST:? Lungs:? There is a small to moderate size pneumothorax along anterior aspect of right lung.? Hazy opacities are noted along posterior and lateral aspect of right lung consistent with pulmonary contusion.? Scattered atelectasis in posterior and lateral periphery of left lung is seen.? No pleural effusion.? No left-sided pneumothorax.? Central and peripheral airways appear patent and normal in caliber.? ? Mediastinum:? No mediastinal hematomas.? Heart size is normal.? No pericardial effusion.? Thoracic aorta and pulmonary arteries demonstrate normal size and enhancement.? No mediastinal or hilar adenopathy.? Esophagus is normal in caliber.? No hiatal hernia.? ? Chest wall:? Minimally displaced fractures involving right posterior lateral 3rd through 8th ribs are seen.? Adjacent subcutaneous emphysema along posterior lateral right chest wall is seen.? No axillary or supraclavicular adenopathy.? Thyroid gland is within normal limits..? ? ? ABDOMEN:? Solid organs:? Liver is normal in size and enhancement, without lacerations.? Gallbladder is within normal limits.? Biliary system is non-dilated.? Pancreas enhances normally, without transection.? Spleen is normal in size and enhancement, without lacerations.? No adrenal hematomas.? Both kidneys enhance normally, without hydronephrosis or lacerations. ? ? Peritoneum and bowel:? No free fluid or air.? Unenhanced bowel loops demonstrate normal wall thickness and caliber.? ? Nodes and vessels:? No retroperitoneal or mesenteric adenopathy.? Aorta and inferior vena cava are normal in size and enhancement.? ? Miscellaneous:? Small umbilical hernia is seen containing fat only. ? ? PELVIS:? Genitourinary:? Bladder wall thickness is normal.? ? Miscellaneous:? No inguinal hernias or adenopathy.? ? Bones:? Pelvic ring and hip joints appear intact.? No vertebral compression fractures.? Degenerative disc disease throughout lower lumbar spine is seen. ? ? IMPRESSION:? 1. Acute slightly displaced fractures involving right posterior lateral 3rd through 8th ribs with adjacent right posterior lateral chest wall subcutaneous emphysema. 2. Contusion involving posterior and lateral aspect of right lung with small to moderate size pneumothorax along anterior aspect of right hemithorax.? No left-sided pleural effusion or pneumothorax. 3. No acute solid organ injury is seen in abdomen or pelvis.? No mediastinal hematoma.? No free fluid or free air. 4. No other fracture or dislocation is seen.? Degenerative disc disease in lower lumbar spine. ? Dictated by: Angel Robles M.D. on 07/07/2022 at 13:49 ? ? Approved by: Angel Robles M.D. on 07/07/2022 at 14:03 ? ECG Data Interpretation: Sinus rhythm rate 65 ID interval 170 QRS 96 QTC 422 MDM Narrative Medical decision making narrative: The patient presents as a modified trauma fall off roof. Found have multiple rib fractures on initial chest x-ray pneumothorax was not picked up until CT. Chest tube was initially placed however with movement it did come out. It was replaced and sutured down with improvement of the pneumothorax. Fortunately he has no other injuries besides multiple rib fractures and pneumothorax. His pain is controlled well with Dilaudid Surgery Dr. Kirby called updated on patient's symptoms test results agrees with admission. Patient has remained hemodynamically stable in the emergency department no significant blood loss or blood return from the chest tube. Discharge Plan Departure Patient Disposition: Admitted As Inpatient Clinical Impression: Multiple rib fractures Qualifiers: Encounter type: initial encounter Fracture type: closed Laterality: right Qualified Code(s): S22.41XA - Multiple fractures of ribs, right side, initial encounter for closed fracture Pneumothorax Qualifiers: Pneumothorax type: traumatic Encounter type: initial encounter Qualified Code(s): S27.0XXA - Traumatic pneumothorax, initial encounter Admit Date/Time: 07/07/22 16:36 Admit Provider: Jewel Kirby
[2022-07-07] MEDS: HYDROMORPHONE 0.5 MG INJ IV ×3 (14:30→21:07)
[2022-07-07] MEDS: SODIUM CHLORIDE 0.9% 1,000 ML 1000 ML IV (14:41)
[2022-07-07] MEDS: propofoL 200 MG/20 ML VIAL 80 MG IV (14:45)
[2022-07-07] MEDS: HYDROMORPHONE 1 MG INJ IV ×2 (15:08→16:25)
--- NOTE | 2022-07-07 15:16 | PC.NURSE ---
1345: cspine cleared by Dr Cedeño and ccollar removed
--- NOTE | 2022-07-07 15:16 | PC.NURSE ---
[id number]: pt prepped at 1430 for chest tube insertion. Pt AAOx3 and received pain medication per NOV. RN x 2, RT and Dr Cedeño at bedside. Consent signed and placed in paper chart. 20F chest tube inserted into R midaxillary chest. Pt tolerated well. Per Dr Cedeño, +air return, +condensation,+tidaling with breaths. HOB elevated. CXR to confirm placement. Connected to LIS and remedicated for pain. Pt states he is feeling better and 99% on RA. ETCO2 38. 1530: No tidaling observed. Dr Cedeño made aware. 2nd CXR obtained with HOB more elevated. Per radiology, chest tube may be misplaced. Suction off. Pt remains comfortable with normal VS. Awaiting further orders.
--- NOTE | 2022-07-07 15:20 | DI.RAD.S_ITS ---
PROCEDURE: XR CHEST 1V INDICATIONS: chest tube TECHNIQUE: One view of the chest was acquired. COMPARISON: [facility], , XR CHEST 1V, 07/07/2022, 14:54. FINDINGS: Surgical changes and devices: There is interval reposition of right-sided chest tube, the side port appears to be within right hemithorax. Lungs and pleura: Subtle radiolucency along medial aspect of right upper thorax is seen likely represent patient's known anterior pneumothorax and appears smaller compared to earlier study. No left-sided pneumothorax. Patient's known right lower lung field pulmonary contusion is not well seen on the chest radiograph. Mediastinum: Mediastinal contours appear normal. Heart size is normal. Bones and chest wall: No suspicious bony lesions. Subcutaneous emphysema is again seen along right lateral chest wall. Patient's known right posterior rib fractures are unchanged. IMPRESSION: Interval repositioning of right-sided chest tube with chest tube now appears in satisfactory position. Suggestion of small residual right anterior pneumothorax. No left-sided pneumothorax. Right rib fractures are again seen unchanged. Dictated by: Angel Robles M.D. on 07/07/2022 at 16:02 Approved by: Angel Robles M.D. on 07/07/2022 at 16:05
[2022-07-07] MEDS: propofoL 200 MG/20 ML VIAL 50 MG IV (15:40)
--- NOTE | 2022-07-07 15:56 | PC.NURSE ---
1535: pt prepped for chest tube reinsertion. CXR for confirmation. Pt tolerated well. SPO2 99% ETCO2 43.
--- NOTE | 2022-07-07 16:18 | PC.NURSE ---
1620: PRN order for Dilaudid 1mg IVP Q3hrs. Pt due at 1815. Per Dr Cedeño, pt can receive additional dose of dilaudid 1mg breakthrough since chest tube had to be removed and reinserted. Pt reporting significant amount of pain and soreness.
[2022-07-07 17:01] LABS: COVID19 -Nasal RAPID Negative (Negative)
--- NOTE | 2022-07-07 17:11 | CM.DANOTE ---
Pt is a 61 year old male who presents to the hospital following a fall from his roof. Pt has [employer]. Pt lives alone and is independent at baseline. Plan: SW will continue to follow for dc recommendations to make appropriate referrals. ASAD Braun Discharge Planning/Care Management CM Discharge Assessment Start: 07/07/22 16:42 Freq: Status: Active Protocol: Document 07/07/22 17:08 TM (Rec: 07/07/22 17:11 TM [id number]) Discharge Planning Assessment Assigned Power Regulator ASAD Braun DPOA/Assigned Designee Name N/A Advance Directives? No History Provided By Patient Has Patient been admitted in last 30 No days? Prior Living Arrangements House Comment Pt lives alone in a single story house with a ramp entrance on one side and steps on the other side. Household Members none Type of transporation used prior to Drives own vehicle admit Independent with ADL's Yes Is patient alert and oriented? Yes Comment Pt is fully independent at baseline and does not require assistance with ADLs. Pt does not use any DME. Caregiver for Another No Comment TBD Barriers to Discharge No Discharge Plan Home Transportation Arrangement unknown. Pt has local friend that visited in ED that may be able to provide ride. Additional Comment Referrals TBD Please Provide Date Initial DC 07/07/22 Assessment Was Performed
--- NOTE | 2022-07-07 17:37 | PC.NURSE ---
Q5 min vitals printed and placed in paper chart.
--- NOTE | 2022-07-07 17:42 | PM.HP.1 ---
History of Present Illness History of Present Illness Date Patient Seen: 07/07/22 Time Patient Seen: 17:44 Chief complaint: fell off roof Narrative: Rizwan is a 61-year-old man who fell from a ladder today. He estimates he was about 10 ft up. He did not his head or lose consciousness. Chief complaint is right chest pain. He would a CT scan of the brain, C-spine, chest, abdomen and pelvis in the ER today which showed right-sided rib fractures and small pneumothorax. Chest tube was placed by Dr. Beto goins. Patient History Family & Social History Social History: household members none Prior Living Arrangements House Safety & Behavioral: Feels Safe in Current Yes Environment Been Physically Hurt or No Threatened By a Person Tobacco & Substance use: Smoking Status Never smoker alcohol intake frequency other Substance Use Type does not use Meds Home Medications and Allergies Home Medications Medication Instructions Recorded Confirmed Type cholesterol medication PO 02/19/21 History omega-3 fatty acids 1,000 mg 1,000 mg PO DAILY 02/19/21 02/19/21 History capsule (Fish Oil Concentrate) oxymetazoline 0.05 % nasal spray 1 spray intranasal ONCE 02/19/21 02/19/21 History (12 Hour Nasal Relief [place]) Allergies Allergy/AdvReac Type Severity Reaction Status Date / Time Cehusti-VOZ-IgI Reductase Allergy Intermediate Verified 01/11/22 13:46 Inhibitor [[id number] REDUCTASE INHIBITOR] Exam Vital Signs (past 8 hours): - 07/07/22 13:22 07/07/22 12:50 07/07/22 13:08 Temperature 97.8 F Pulse Rate 76 75 76 Respiratory Rate 16 20 21 Blood Pressure 155/90 H 150/96 H Pulse Oximetry 95 96 95 Oxygen Delivery Method Room Air Room Air Oxygen Flow Rate 07/07/22 13:21 07/07/22 13:21 07/07/22 13:25 Temperature Pulse Rate 79 79 Respiratory Rate 21 15 Blood Pressure 141/84 H Pulse Oximetry 97 95 Oxygen Delivery Method Oxygen Flow Rate 07/07/22 13:25 07/07/22 13:30 07/07/22 13:31 Temperature Pulse Rate 76 73 Respiratory Rate 22 23 Blood Pressure 144/88 H Pulse Oximetry 98 97 Oxygen Delivery Method Oxygen Flow Rate 07/07/22 13:31 07/07/22 13:35 07/07/22 13:35 Temperature Pulse Rate 72 Respiratory Rate 20 Blood Pressure 138/86 130/81 Pulse Oximetry 95 Oxygen Delivery Method Oxygen Flow Rate 07/07/22 13:45 07/07/22 13:45 07/07/22 14:00 Temperature Pulse Rate 73 Respiratory Rate 19 Blood Pressure 136/85 136/91 H Pulse Oximetry 97 Oxygen Delivery Method Oxygen Flow Rate 07/07/22 14:00 07/07/22 14:15 07/07/22 14:15 Temperature Pulse Rate 75 76 Respiratory Rate 18 17 Blood Pressure 132/82 Pulse Oximetry 98 95 Oxygen Delivery Method Oxygen Flow Rate 07/07/22 14:20 07/07/22 14:25 07/07/22 14:30 Temperature Pulse Rate 81 80 Respiratory Rate 22 19 Blood Pressure 127/81 Pulse Oximetry 97 98 Oxygen Delivery Method Oxygen Flow Rate 07/07/22 14:30 07/07/22 14:35 07/07/22 14:35 Temperature Pulse Rate 81 73 Respiratory Rate 25 H 16 Blood Pressure 120/74 Pulse Oximetry 98 97 Oxygen Delivery Method Oxygen Flow Rate 07/07/22 14:40 07/07/22 14:40 07/07/22 14:44 Temperature Pulse Rate 75 74 Respiratory Rate 24 18 Blood Pressure 130/82 Pulse Oximetry 100 100 Oxygen Delivery Method Oxygen Flow Rate 07/07/22 14:44 07/07/22 14:45 07/07/22 14:50 Temperature Pulse Rate 76 Respiratory Rate 20 Blood Pressure 131/82 136/70 141/72 H Pulse Oximetry 100 Oxygen Delivery Method Oxygen Flow Rate 07/07/22 14:50 07/07/22 14:55 07/07/22 14:55 Temperature Pulse Rate 79 78 Respiratory Rate 30 H 22 Blood Pressure 133/78 Pulse Oximetry 94 98 Oxygen Delivery Method Oxygen Flow Rate 07/07/22 14:59 07/07/22 15:00 07/07/22 15:00 Temperature Pulse Rate 74 Respiratory Rate 18 21 Blood Pressure 132/77 Pulse Oximetry 100 Oxygen Delivery Method Oxygen Flow Rate 07/07/22 15:05 07/07/22 15:05 07/07/22 15:10 Temperature Pulse Rate 74 Respiratory Rate 20 Blood Pressure 135/81 158/85 H Pulse Oximetry 100 Oxygen Delivery Method Oxygen Flow Rate 07/07/22 15:10 07/07/22 15:15 07/07/22 15:15 Temperature Pulse Rate 80 77 Respiratory Rate 23 12 Blood Pressure 121/73 Pulse Oximetry 100 98 Oxygen Delivery Method Oxygen Flow Rate 07/07/22 15:20 07/07/22 15:20 07/07/22 15:25 Temperature Pulse Rate 82 Respiratory Rate 20 Blood Pressure 124/78 114/77 Pulse Oximetry 99 Oxygen Delivery Method Oxygen Flow Rate 07/07/22 15:25 07/07/22 15:30 07/07/22 15:30 Temperature Pulse Rate 84 83 Respiratory Rate 13 18 Blood Pressure 124/80 Pulse Oximetry 98 97 Oxygen Delivery Method Oxygen Flow Rate 07/07/22 15:35 07/07/22 15:35 07/07/22 15:40 Temperature Pulse Rate 81 Respiratory Rate 18 Blood Pressure 124/84 122/77 Pulse Oximetry 97 Oxygen Delivery Method Oxygen Flow Rate 07/07/22 15:40 07/07/22 15:45 07/07/22 15:45 Temperature Pulse Rate 77 87 Respiratory Rate 12 15 Blood Pressure 119/79 Pulse Oximetry 99 97 Oxygen Delivery Method Nasal Cannula Oxygen Flow Rate 4 07/07/22 15:50 07/07/22 15:50 07/07/22 15:55 Temperature Pulse Rate 79 Respiratory Rate 15 Blood Pressure 126/66 123/74 Pulse Oximetry 93 Oxygen Delivery Method Nasal Cannula Oxygen Flow Rate 4 07/07/22 15:55 07/07/22 16:00 07/07/22 16:00 Temperature Pulse Rate 75 71 Respiratory Rate 14 15 Blood Pressure 122/77 Pulse Oximetry 100 100 Oxygen Delivery Method Nasal Cannula Nasal Cannula Oxygen Flow Rate 4 2 07/07/22 16:05 07/07/22 16:05 07/07/22 16:10 Temperature Pulse Rate 85 Respiratory Rate 21 Blood Pressure 128/82 126/75 Pulse Oximetry 99 Oxygen Delivery Method Nasal Cannula Oxygen Flow Rate 2 07/07/22 16:10 07/07/22 16:15 07/07/22 16:15 Temperature Pulse Rate 84 81 Respiratory Rate 20 19 Blood Pressure 125/78 Pulse Oximetry 98 99 Oxygen Delivery Method Nasal Cannula Room Air Oxygen Flow Rate 2 07/07/22 16:20 07/07/22 16:20 07/07/22 12:55 Temperature Pulse Rate 74 76 Respiratory Rate 16 20 Blood Pressure 120/69 150/88 H Pulse Oximetry 98 96 Oxygen Delivery Method Oxygen Flow Rate 07/07/22 17:25 07/07/22 17:00 07/07/22 16:35 Temperature Pulse Rate 87 88 79 Respiratory Rate 20 25 H 12 Blood Pressure 117/68 108/74 108/64 Pulse Oximetry 98 98 96 Oxygen Delivery Method Room Air Oxygen Flow Rate Oxygen Delivery Method Room Air Oxygen Flow Rate 2 Narrative Exam Narrative: Drowsy Right-sided chest wall tenderness Chest tube shows no air leak and minimal drainage Objective Labs Result Diagrams: 07/07/22 13:06 07/07/22 13:06 Labs: Laboratory Results - last 24 hr 07/07/22 07/07/22 07/07/22 13:06 13:06 13:06 WBC 8.6 RBC 4.49 L Hgb 13.8 Hct 40.6 L MCV 90.3 MCH 30.7 MCHC 34.0 RDW 13.6 Plt Count 308 Neut % (Auto) 67.7 Lymph % (Auto) 17.9 L [place] % (Auto) 8.8 Eos % (Auto) 5.0 H Baso % (Auto) 0.6 Neut # (Auto) 5800 Lymph # (Auto) 1500 [place] # (Auto) 800 Eos # (Auto) 400 Baso # (Auto) 100 PT 11.6 INR 1.0 APTT 31 Sodium 138 Potassium 4.2 Chloride 100 Carbon Dioxide 29 BUN 16 Creatinine 0.83 Estimated GFR > 60 BUN/Creatinine Ratio 19.3 Glucose 132 H Lactate Calcium 9.0 Total Bilirubin 0.7 AST 58 ALT 46 Alkaline Phosphatase 69 Total Creatine Kinase 213 H CK-MB (CK-2) 2.42 H CK-MB (CK-2) Rel Index 1.1 L Troponin I < 0.012 Total Protein 7.9 Albumin 4.2 Globulin 3.7 Albumin/Globulin Ratio 1.1 Lipase 156 Ethyl Alcohol < 10 SARS-CoV-2 (PCR) 07/07/22 07/07/22 13:06 16:30 WBC RBC Hgb Hct MCV MCH MCHC RDW Plt Count Neut % (Auto) Lymph % (Auto) [place] % (Auto) Eos % (Auto) Baso % (Auto) Neut # (Auto) Lymph # (Auto) [place] # (Auto) Eos # (Auto) Baso # (Auto) PT INR APTT Sodium Potassium Chloride Carbon Dioxide BUN Creatinine Estimated GFR BUN/Creatinine Ratio Glucose Lactate 1.3 Calcium Total Bilirubin AST ALT Alkaline Phosphatase Total Creatine Kinase CK-MB (CK-2) CK-MB (CK-2) Rel Index Troponin I Total Protein Albumin Globulin Albumin/Globulin Ratio Lipase Ethyl Alcohol SARS-CoV-2 (PCR) Negative Assessment & Plan Assessment and plan (1) Multiple rib fractures: Qualifiers: Encounter type: initial encounter Fracture type: closed Laterality: right Qualified Code(s): S22.41XA - Multiple fractures of ribs, right side, initial encounter for closed fracture Status: Acute (2) Pneumothorax: Qualifiers: Pneumothorax type: traumatic Encounter type: initial encounter Qualified Code(s): S27.0XXA - Traumatic pneumothorax, initial encounter Status: Acute Plan Admit for pain control and chest tube management Pulmonary hygiene with incentive spirometer Chest x-ray in the morning and if no evidence for air leak and no residual pneumothorax the chest tube might be removed tomorrow. Dr. Reina will be by tomorrow to round. Time Spent With Patient Critical Care time: I spent a total of [] minutes of critical care time on this patient's care today; this time is exclusive of procedural time.
[2022-07-07] MEDS: IBUPROFEN 600 MG TABLET PO (19:35)
[2022-07-07] MEDS: HYDROCODONE/ACET 5/325 TABLET 1 TAB PO (19:35)
--- NOTE | 2022-07-07 19:46 | PC.NURSE ---
Pt arrived from ED at 1730 A&OX3. He is on RA VSS, LS diminished. He reports pain 7/10 this evening. He is medicated with prn medications he reports with poor control. He is able to tolerate dinner well. Awaiting pt to void. MD notified clarifying activity, CT orders, and more frequent prn Pain medications. He is resting quietly in bed Continuous pulse ox 96-98% on RA.
[2022-07-07] MEDS: LACTATED RINGERS 1,000 ML 75 ML IV (20:25)
[2022-07-07] MEDS: ONDANSETRON 4 MG/2 ML INJ IV (21:15)
[2022-07-07] MEDS: diphenhydrAMINE 25 MG TABLET PO (21:15)
--- NOTE | 2022-07-08 | DI.RAD.S_ITS ---
PROCEDURE: XR CHEST 1V INDICATIONS: Pneumothorax TECHNIQUE: One view of the chest was acquired. COMPARISON: [facility], CT, CT CHEST ABD PEL W CON, 07/07/2022, 13:10. [facility], CR, XR CHEST 1V, 07/07/2022, 14:54. [facility], CR, XR CHEST 1V, 07/07/2022, 15:18. FINDINGS: Surgical changes and devices: Right-sided chest tube is unchanged in position. Lungs and pleura: There is felt to be a persistent trace lucency along the lateral right chest wall. Small appearance of linear and patchy opacities are present within the lungs suggestive atelectasis. Mediastinum: Mediastinal contours appear normal. Heart size is normal. Bones and chest wall: No suspicious bony lesions. Overlying soft tissues appear unremarkable. Multiple rib fractures are again identified. IMPRESSION: Poorly visualized but suspected minimal persistent right pneumothorax. Dictated by: Shakira Dunn M.D. on 07/08/2022 at 11:42 Approved by: Shakira Dunn M.D. on 07/08/2022 at 13:40
[2022-07-08] MEDS: HYDROMORPHONE 0.5 MG INJ IV ×6 (00:18→18:13)
[2022-07-08 01:22] VITALS: BP 132/83; PULSE 72; RESP 20; O2SAT 96
[2022-07-08 05:00] VITALS: BP 139/87; PULSE 72; RESP 18; TEMP 36.4; O2SAT 100
[2022-07-08] MEDS: IBUPROFEN 600 MG TABLET PO ×2 (05:12→11:00)
[2022-07-08] MEDS: OXYMETAZOLINE NASAL SPRAY 15 ML 1 SPRAYS NASAL (06:55)
[2022-07-08 08:04] LABS: Add Manual Diff / Slide Review NO; Basophils Absolute Auto 0 /uL (0-100); Basophils Percent Auto 0.5 % (0-2); Eosinophils Absolute Auto 400 /uL (0-450); Eosinophils Percent Auto 4.5 % (2-4); Hematocrit 35.6 % (41-53); Hemoglobin 12.2 g/dL (13.5-17.5); Lymphocytes Absolute Auto 1500 /uL (1100-4500); Lymphocytes Percent Auto 17.8 % (25-40); Mean Corpuscular HGB Conc 34.3 % (30-36); Mean Corpuscular Hemoglobin 31.1 PG (26-34); Mean Corpuscular Volume 90.7 fL (80-100); Monocytes Absolute Auto 1200 /uL (0-900); Monocytes Percent Auto 14.4 % (3-14); Neutrophils Absolute Auto 5300 /uL (1500-7000); Neutrophils Percent Auto 62.8 % (50-75); Platelet Count 230 X10^3/uL (150-400); Red Blood Cell Count 3.93 X10^6/uL (4.5-5.9); Red Cell Distribution Width 13.6 % (11.6-14.8); White Blood Cell Count 8.4 X10^3/uL (4.5-11.0)
[2022-07-08] MEDS: ACETAMINOPHEN 325 MG TABLET 650 MG PO (08:04)
[2022-07-08] MEDS: FISH OIL 1,000 MG CAPSULE 1000 MG PO (08:04)
[2022-07-08] MEDS: ACYCLOVIR 400 MG TABLET PO (08:18)
[2022-07-08 08:30] LABS: Alanine Aminotransferase 42 IU/L (<50); Albumin 3.4 g/dL (3.5-5.0); Albumin Globulin Ratio 1.1 (1.0-2.8); Alkaline Phosphatase 53 U/L (38-126); Aspartate Aminotransferase 55 IU/L (17-59); BUN Creatinine Ratio 26.2 (6-22); Bilirubin Total 0.8 mg/dL (0.2-1.3); Blood Urea Nitrogen 17 mg/dL (9-20); Calcium 8.3 mg/dL (8.4-10.2); Carbon Dioxide 28 mmol/L (22-32); Chloride 101 mmol/L (98-107); Estimated Glomerular Filt Rate > 60 mL/min (>60); Glucose 95 mg/dL (80-110); HEMOLYSIS < 15 (0-50); Potassium 3.7 mmol/L (3.4-5.1); Sodium 136 mmol/L (137-145); Total Protein 6.4 g/dL (6.3-8.2)
[2022-07-08] MEDS: HYDROCODONE/ACET 5/325 TABLET 1 TAB PO (11:08)
[2022-07-08] MEDS: LACTATED RINGERS 1,000 ML 75 ML IV (11:09)
[2022-07-08] MEDS: polyethylene glycoL 3350 17 GM POWD.PACK PO ×2 (11:22→20:05)
[2022-07-08 11:48] VITALS: BP 130/84; PULSE 74; RESP 16; TEMP 36.4; O2SAT 95
--- NOTE | 2022-07-08 13:23 | P.HP_ITS ---
History of Present Illness History of Present Illness Date Patient Seen: 07/08/22 Time Patient Seen: 13:23 Chief complaint: fell off roof Narrative: Pain with deep breath and cough. Patient History Family & Social History Social History: household members none Prior Living Arrangements House Safety & Behavioral: Feels Safe in Current Yes Environment Been Physically Hurt or No Threatened By a Person Tobacco & Substance use: Smoking Status Never smoker alcohol intake current alcohol intake frequency other Substance Use Type does not use Meds Home Medications and Allergies Home Medications Medication Instructions Recorded Confirmed Type omega-3 fatty acids 1,000 mg 1,000 mg PO DAILY 02/19/21 07/07/22 History capsule (Fish Oil Concentrate) oxymetazoline 0.05 % nasal spray 1 spray intranasal ONCE 02/19/21 07/07/22 History (12 Hour Nasal Relief [place]) acyclovir 400 mg tablet 400 mg PO DAILY 07/07/22 07/07/22 History dextroamphetamine-amphetamine 5 mg 5 mg PO DAILY 07/07/22 07/07/22 History tablet dextroamphetamine-amphetamine ER 20 mg PO DAILY 07/07/22 07/07/22 History 20 mg 24hr capsule,extend release Allergies Allergy/AdvReac Type Severity Reaction Status Date / Time Rcxocqw-VOV-LnX Reductase Allergy Intermediate Verified 01/11/22 13:46 Inhibitor [UFMAZME-WEW-SJE REDUCTASE INHIBITOR] Exam Vital Signs (past 8 hours): - 07/08/22 11:48 Temperature 97.5 F L Pulse Rate 74 Respiratory Rate 16 Blood Pressure 130/84 Pulse Oximetry 95 Oxygen Delivery Method Room Air Oxygen Flow Rate 0 Narrative Exam Narrative: doing well, my read of CXR this morning is no PTX. No airleak, minimal blood in atrium. Tender right chest wall. Great attitude. Objective Labs Result Diagrams: 07/08/22 07:47 07/08/22 07:47 Labs: Laboratory Results - last 24 hr 07/07/22 07/07/22 07/07/22 13:06 13:06 13:06 WBC 8.6 RBC 4.49 L Hgb 13.8 Hct 40.6 L MCV 90.3 MCH 30.7 MCHC 34.0 RDW 13.6 Plt Count 308 Neut % (Auto) 67.7 Lymph % (Auto) 17.9 L [place] % (Auto) 8.8 Eos % (Auto) 5.0 H Baso % (Auto) 0.6 Neut # (Auto) 5800 Lymph # (Auto) 1500 [place] # (Auto) 800 Eos # (Auto) 400 Baso # (Auto) 100 PT 11.6 INR 1.0 APTT 31 Sodium 138 Potassium 4.2 Chloride 100 Carbon Dioxide 29 BUN 16 Creatinine 0.83 Estimated GFR > 60 BUN/Creatinine Ratio 19.3 Glucose 132 H Lactate Calcium 9.0 Total Bilirubin 0.7 AST 58 ALT 46 Alkaline Phosphatase 69 Total Creatine Kinase 213 H CK-MB (CK-2) 2.42 H CK-MB (CK-2) Rel Index 1.1 L Troponin I < 0.012 Total Protein 7.9 Albumin 4.2 Globulin 3.7 Albumin/Globulin Ratio 1.1 Lipase 156 Ethyl Alcohol < 10 SARS-CoV-2 (PCR) 07/07/22 07/07/22 07/08/22 13:06 16:30 07:47 WBC 8.4 RBC 3.93 L Hgb 12.2 L Hct 35.6 L MCV 90.7 MCH 31.1 MCHC 34.3 RDW 13.6 Plt Count 230 Neut % (Auto) 62.8 Lymph % (Auto) 17.8 L [place] % (Auto) 14.4 H Eos % (Auto) 4.5 H Baso % (Auto) 0.5 Neut # (Auto) 5300 Lymph # (Auto) 1500 [place] # (Auto) 1200 H Eos # (Auto) 400 Baso # (Auto) 0 PT INR APTT Sodium Potassium Chloride Carbon Dioxide BUN Creatinine Estimated GFR BUN/Creatinine Ratio Glucose Lactate 1.3 Calcium Total Bilirubin AST ALT Alkaline Phosphatase Total Creatine Kinase CK-MB (CK-2) CK-MB (CK-2) Rel Index Troponin I Total Protein Albumin Globulin Albumin/Globulin Ratio Lipase Ethyl Alcohol SARS-CoV-2 (PCR) Negative 07/08/22 07:47 WBC RBC Hgb Hct MCV MCH MCHC RDW Plt Count Neut % (Auto) Lymph % (Auto) [place] % (Auto) Eos % (Auto) Baso % (Auto) Neut # (Auto) Lymph # (Auto) [place] # (Auto) Eos # (Auto) Baso # (Auto) PT INR APTT Sodium 136 L Potassium 3.7 Chloride 101 Carbon Dioxide 28 BUN 17 Creatinine 0.65 L Estimated GFR > 60 BUN/Creatinine Ratio 26.2 H Glucose 95 Lactate Calcium 8.3 L Total Bilirubin 0.8 AST 55 ALT 42 Alkaline Phosphatase 53 Total Creatine Kinase CK-MB (CK-2) CK-MB (CK-2) Rel Index Troponin I Total Protein 6.4 Albumin 3.4 L Globulin 3.0 Albumin/Globulin Ratio 1.1 Lipase Ethyl Alcohol SARS-CoV-2 (PCR) Assessment & Plan Assessment & Plan narrative: Fall from roof, PTX with multiple closed left rib fractures. PTX resolved with chest tube Plan: Remove chest tube, follow up CXR. IF Xray and pain controlled, he can go home later today. COVID-19 COVID-19 status: Negative Time Spent With Patient Time with patient: 30 to 49 minutes with 50% spent counseling/coordinating care Critical Care time: I spent a total of [] minutes of critical care time on this patient's care today; this time is exclusive of procedural time. Quality VTE Deep Vein Thrombosis/Pulmonary Embolism Present on Admission: No
--- NOTE | 2022-07-08 13:49 | CM.DPNOTE ---
Discharge Planning Note: Met with patient. Chest tube intact. Oximetries stable. Patient lives alone and is independent. Plan: Discharge home when medically cleared. Friend can transport. Lulu Lopez RN/DCP
--- NOTE | 2022-07-08 14:05 | CM.DANOTE ---
Initial Discharge Assessment Note: Case reviewed, met with patient. Introduced self and role. Payer: All [employer] and Medicaid PCP: Wm Verma 61 year old male admitted yesterday after fell off a 10 ft ladder and fractured his right ribs and sustained a small pneumothorax requiring a chest tube which is still in. He is being medicated for pain. Patient lives alone locally, is independent in ADLs. Plan: DC when medically stable. Friend to transport. [facility] Discharge Planning/Care Management CM Discharge Assessment Start: 07/07/22 16:42 Freq: Status: Active Protocol: Document 07/07/22 17:08 TM (Rec: 07/07/22 17:11 TM [id number]) Discharge Planning Assessment Assigned Regulator Pin Inserter ASAD Braun DPOA/Assigned Designee Name N/A Advance Directives? No History Provided By Patient Has Patient been admitted in last 30 No days? Prior Living Arrangements House Comment Pt lives alone in a single story house with a ramp entrance on one side and steps on the other side. Household Members none Type of transporation used prior to Drives own vehicle admit Independent with ADL's Yes Is patient alert and oriented? Yes Comment Pt is fully independent at baseline and does not require assistance with ADLs. Pt does not use any DME. Caregiver for Another No Comment TBD Barriers to Discharge No Discharge Plan Home Transportation Arrangement unknown. Pt has local friend that visited in ED that may be able to provide ride. Additional Comment Referrals TBD Please Provide Date Initial DC 07/07/22 Assessment Was Performed
--- NOTE | 2022-07-08 15:26 | DI.RAD.S_ITS ---
PROCEDURE: XR CHEST 1V INDICATIONS: chest tube remove TECHNIQUE: One view of the chest was acquired. COMPARISON: [facility], CR, XR CHEST 1V, 07/08/2022, 0:03. [facility], CR, XR CHEST 1V, 07/07/2022, 15:18. FINDINGS: Surgical changes and devices: Right-sided chest tube has been removed. Lungs and pleura: Lungs are clear. No pleural effusions or pneumothorax. Interstitial prominence is unchanged compared to the prior study and is likely chronic. There is bibasilar atelectasis. Mediastinum: Mediastinal contours appear normal. Heart size is normal. Bones and chest wall: No suspicious bony lesions. Overlying soft tissues appear unremarkable. IMPRESSION: Interval removal of right-sided chest tube. No residual pneumothorax identified. Dictated by: Oscar Hernandez M.D. on 07/08/2022 at 15:53 Approved by: Oscar Hernandez M.D. on 07/08/2022 at 15:55
[2022-07-08 16:37] VITALS: BP 127/77; PULSE 74; RESP 16; TEMP 36.3; O2SAT 93
[2022-07-08] MEDS: OXYCODONE IR 5 MG TABLET PO ×2 (16:37→20:05)
[2022-07-08] MEDS: LIDOCAINE PATCH 1 EACH ADH..PATCH TOP (18:02)
[2022-07-08 19:57] VITALS: BP 137/74; PULSE 81; RESP 18; TEMP 36.6; O2SAT 94
[2022-07-09] MEDS: OXYCODONE IR 5 MG TABLET PO ×3 (00:44→12:30)
[2022-07-09] MEDS: HYDROMORPHONE 0.5 MG INJ IV ×2 (01:31→04:19)
[2022-07-09 02:32] LABS: UR Morphine/Opiate cutoff 300 Negative (Negative); Ur Creatinine Normal (Normal); Ur Specific Gravity Normal (Normal); Urine Amphetamines Negative (Negative); Urine Barbiturates Negative (Negative); Urine Benzodiazepines Negative (Negative); Urine Cocaine Negative (Negative); Urine MDMA Negative (Negative); Urine Methadone Negative (Negative); Urine Methamphetamines Negative (Negative); Urine Oxycodone Positive (Negative); Urine Phencyclidine Negative (Negative); Urine Tetrahydrocannabinol Negative (Negative); Urine Tricyclic Antidepressant Negative (Negative); Urine pH Normal (Normal)
--- NOTE | 2022-07-09 03:32 | PC.NURSE ---
Pt is AxOx4, needs 1-2 person assistance and cooperative. VSS, except pain. Pt c/o pain R ribs area and recieved PRN Oxy 5mg twice and IV Dilaudid 0.5mg once with good effect. Dressing on chest tube site changed. No BM overnight. No other changes. Continue monitor.
[2022-07-09 04:26] VITALS: BP 140/79; PULSE 75; RESP 18; TEMP 36.2; O2SAT 93
[2022-07-09 08:00] VITALS: BP 137/92; PULSE 72; RESP 16; O2SAT 96
[2022-07-09] MEDS: FISH OIL 1,000 MG CAPSULE 1000 MG PO (08:00)
[2022-07-09] MEDS: ACYCLOVIR 400 MG TABLET PO (08:01)
[2022-07-09] MEDS: polyethylene glycoL 3350 17 GM POWD.PACK PO (08:01)
[2022-07-09] MEDS: LIDOCAINE PATCH 1 EACH ADH..PATCH TOP (08:01)
[2022-07-09] MEDS: ACETAMINOPHEN 325 MG TABLET 650 MG PO (08:02)
[2022-07-09] MEDS: ONDANSETRON 4 MG/2 ML INJ IV (08:31)
[2022-07-09] MEDS: IBUPROFEN 600 MG TABLET PO (12:31)
[2022-07-09 12:51] VITALS: BP 145/90; PULSE 81; RESP 16; O2SAT 92
== END 2022-07-09 13:20 | disposition home or self-care (01) | DRG 135 ==
LOC: ED 14:39 → AC 16:37
PROVIDERS: Admitting Provider Surgery; Emergency Provider Emergency Medicine; PCP Family Medicine; Referring Provider Emergency Medicine; Visit Provider Surgery
DX: S27.0XXA Traumatic pneumothorax, initial encounter (principal); S22.41XA Multiple fractures of ribs, right side, initial encounter for closed fracture; W11.XXXA Fall on and from ladder, initial encounter; Z20.822 Contact with and (suspected) exposure to COVID-19
CPT/HCPCS: 32551; 36415; 70450; 71045; 71260; 72125; 74177; 80053; 80305; 80320; 82550; 82553; 83605; 83690; 84484; 85025; 85610; 85730; 87635; 93005; 96374; 96376; 99152; 99221; 99232; 99285; 99291; 99292; C9803; A9270; J1170; J2405; J2704; Q9967